=== PATIENT | male | born 1945 | race Caucasian/White ===

== ENCOUNTER 2020-08-06 09:01 | Emergency (ER) | payer MEDICARE, SELFPAY ==
--- NOTE | ~2020-08-06 | XR_ITS ---
EXAMINATION: XR chest 2V DATE: 08/06/2020 09:38 INDICATION: Shortness of breath. TECHNIQUE: Frontal and lateral views of the chest were obtained. COMPARISON: None. FINDINGS: There are calcified pleural plaques on the right. There is mild scarring at the lung apices . There is mild atelectasis versus scarring at the lung bases. No pleural effusion or pneumothorax. T he heart size is normal. IMPRESSION: 1. Mild scarring at the lung apices and mild atelectasis versus scarring at the lung bases. Reviewed, dictated and finalized at location A. [employer]
[2020-08-06 09:08] VITALS: BP 148/69; PULSE 63; RESP 16; TEMP 37.5; O2SAT 99
--- NOTE | 2020-08-06 09:13 | ED.GENADULT ---
HPI - General Adult General Chief complaint: Shortness of Breath/Dyspnea Stated complaint: SOB/fatigue Time Seen by Provider: 08/06/20 09:13 Source: patient Mode of arrival: ambulatory Limitations: no limitations History of Present Illness HPI narrative: 75-year-old male patient presents to the [facility] accompanied by his with complaints of drainage in the back of his throat and some shortness of breath at times. Patient is an active smoker with history of COPD and mesothelioma. Patient states for the past 2 days he has had some drainage to the back of his throat and sometimes he spits up some yellow sputum. Patient also reports a stuffy and runny nose. Patient states he has had some fatigue, chills and some body aches. Denies any fevers that he is aware of. Denies any chest pain. Patient states he does get a little shortness of breath at times but states that is not necessarily new. Patient states he has had a cough infrequently when he is coughing up the sputum. states that she has tried giving him some [id number] cold and sinus medication for his symptoms. states that he was exposed to Covid sometime last month but did get tested and came back negative. Patient has not been tested for Covid since his symptoms started 2 days ago. Patient denies any abdominal pain, nausea, vomiting or diarrhea. Denies any headache. Related Data Home Medications Medication Instructions Recorded Confirmed atorvastatin 08/06/20 baclofen mg 08/06/20 diclofenac sodium PO 08/06/20 finasteride mg 08/06/20 losartan 08/06/20 Allergies Allergy/AdvReac Type Severity Reaction Status Date / Time No Known Allergies Allergy Unverified 09/05/14 13:28 Review of Systems Review of Systems: Narrative: CONSTITUTIONAL: Denies fever, positive chills, body aches. EYES: Denies visual changes, redness, or discharge. ENT: Positive rhinorrhea, congestion, sore throat, denies otalgia. CARDIOVASCULAR: Denies chest pain, palpitations, or edema. RESPIRATORY: Positive intermittent cough with dyspnea. GASTROINTESTINAL: Denies abdominal pain, nausea, vomiting, or diarrhea. GENITOURINARY: Denies dysuria or hematuria. SKIN: Denies rash or itching. MUSCULOSKELETAL: Denies back pain, joint pain, or myalgia. NEUROLOGIC: Denies headache, numbness, or weakness. Positive fatigue PSYCHIATRIC: Denies anxiety or depression. [facility] Past Medical History Medical History (Updated 08/06/20 @ 09:50 by ANGEL Lamb) Arthritis BPH (benign prostatic hyperplasia) COPD (chronic obstructive pulmonary disease) Depression Hypercholesteremia Hypertension Mesothelioma Surgical History Surgical History (Updated 08/06/20 @ 09:27 by ANGEL Lamb) Previous back surgery 2006 Social History Social History (Updated 08/06/20 @ 09:28 by NAGEL Lamb) Smoking packs per day: 1 Smoking cigarettes per day: 20.0 Smoking status: Current every day smoker Tobacco type: cigarettes Alcohol intake: current Alcohol use details: 3 drinks per month Comments At the time of my signature I agree with nursing past medical history, surgical, social, and family history. There is no relevant family history pertinent to the presenting complaint. Exam Narrative: Exam Narrative: GENERAL: Well-appearing, well-nourished, and in no acute distress. HEAD: Normocephalic, atraumatic. EYES: PERRLA and EOMI. ENT: Nares with erythema and edema noted bilaterally, no rhinorrhea or epistaxis. Mucous membranes moist. Unable to assess bilateral TMs due to cerumen impaction. Posterior pharynx with some erythema and postnasal drip noted. NECK: Supple. No lymphadenopathy CHEST: Slightly decreased lung sounds noted to bilateral upper and lower lobes on auscultation. No respiratory distress. Patient able to talk in clear complete sentences. No tripoding noted. HEART: Regular rate and rhythm. No murmur heard. Normal peripheral pulses. ABDOMEN: Soft,
[2020-08-07 18:20] LABS: SARS-CoV-2 RNA PCR Negative
== END 2020-08-06 09:59 | disposition home or self-care (01) ==
PROVIDERS: Emergency Provider Nurse Practitioner Family; PCP Internal Medicine
DX: J02.0 Streptococcal pharyngitis (principal); Z20.822 Contact with and (suspected) exposure to COVID-19; F17.210 Nicotine dependence, cigarettes, uncomplicated; M19.90 Unspecified osteoarthritis, unspecified site; N40.0 Benign prostatic hyperplasia without lower urinary tract symptoms; J44.9 Chronic obstructive pulmonary disease, unspecified; F32.9 Major depressive disorder, single episode, unspecified; E78.00 Pure hypercholesterolemia, unspecified; I10 Essential (primary) hypertension; C45.9 Mesothelioma, unspecified
CPT/HCPCS: 71046; 87426; 87880; 99203; C9803; G0463; U0003; U0005